=== PATIENT | female | born 1970 | race Caucasian/White ===

== ENCOUNTER 2016-03-14 12:10 | Emergency (ER) | payer BC, OTHER ==
[2016-03-14 12:25] VITALS: BMI 23.8
--- NOTE | 2016-03-14 13:24 | PDOC ---
History of Present Illness - General Chief Complaint: Pain, Acute Stated Complaint: LOWER SIDE/BACK PAIN Time Seen by Provider: 03/14/16 12:59 History Source: Patient Exam Limitations: No Limitations - History of Present Illness Initial Comments: 45 yo F history of kidney stones presents with L flank pain. Pain was abrupt onset, intermittent, colicky, sharp, L flank and L low back. Associated with urinary burning and urgency. +Nausea. No vomiting, no fever, no diarrhea. + Prior similar symptoms. Past History - Past Medical History Allergies/Adverse Reactions: Allergies Allergy/AdvReac Type Severity Reaction Status Date / Time shellfish derived Allergy Verified 03/14/16 12:25 Home Medications: Ambulatory Orders Ibuprofen [Motrin -] 600 mg PO TID PRN #21 tablet 03/14/16 Ondansetron [Zofran -] 4 mg PO TID PRN #21 tablet 03/14/16 Oxycodone HCl/Acetaminophen [Percocet 5-325 mg Tablet] 1 tab PO Q6H PRN #12 tablet MDD 4 tabs 03/14/16 Tamsulosin HCl [Flomax] 0.4 mg PO HS #14 capsule 03/14/16 Asthma: Yes Kidney Stones: Yes - Psycho/Social/Smoking Cessation Hx Suicidal Ideation: No Smoking History: Never smoked Information on smoking cessation initiated: No Review of Systems - Review of Systems Able to Perform ROS?: Yes Comments:: GENERAL/CONSTITUTIONAL: No fever or chills. No weakness. HEAD, EYES, EARS, NOSE AND THROAT: No change in vision. No ear pain or discharge. No sore throat. CARDIOVASCULAR: No chest pain or shortness of breath. RESPIRATORY: No cough, wheezing, or hemoptysis. GASTROINTESTINAL: No nausea, vomiting, diarrhea or constipation. GENITOURINARY: +Dysuria, +urgency. No frequency, no hematuria. MUSCULOSKELETAL: No joint or muscle swelling or pain. No neck or back pain. SKIN: No rash NEUROLOGIC: No headache, vertigo, loss of consciousness, or change in strength/ sensation. ENDOCRINE: No increased thirst. No abnormal weight change. HEMATOLOGIC/LYMPHATIC: No anemia, easy bleeding, or history of blood clots. ALLERGIC/IMMUNOLOGIC: No hives or skin allergy. *Physical Exam - Vital Signs Last Vital Signs Temp Pulse Resp BP Pulse Ox 97.9 F 97 H 18 133/90 100 03/14/16 12:21 03/14/16 12:21 03/14/16 12:21 03/14/16 12:21 03/14/16 12:21 - Physical Exam Comments: GENERAL: Awake, alert, and fully oriented. Appears uncomfortable. HEAD: No signs of trauma EYES: PERRLA, EOMI, sclera anicteric, conjunctiva clear ENT: Auricles normal inspection, hearing grossly normal, nares patent, oropharynx clear without exudates. Moist mucosa NECK: Normal ROM, supple, no lymphadenopathy, JVD, or masses LUNGS: Breath sounds equal, clear to auscultation bilaterally. No wheezes, and no crackles HEART: Regular rate and rhythm, normal S1 and S2, no murmurs, rubs or gallops ABDOMEN: Soft, nontender, normoactive bowel sounds. No guarding, no rebound. No masses. +L CVAT. +Tenderness to L lower back, soft tissue. EXTREMITIES: Normal range of motion, no edema. No clubbing or cyanosis. No cords , erythema, or tenderness NEUROLOGICAL: Cranial nerves II through XII grossly intact. Normal speech, normal gait SKIN: Warm, Dry, normal turgor, no rashes or lesions noted. ED Treatment Course - LABORATORY CBC & Chemistry Diagram: 03/14/16 14:40 03/14/16 14:40 Medical Decision Making - Medical Decision Making Patient's symptoms improved. CT results d/w her. She does not have a local PMD and urologist (moved here recently). I will give a list of PMDs and urologists in the system so that she may set up f/u. Stable for DC. *DC/Admit/Observation/Transfer Diagnosis at time of Disposition: Kidney stone on left side - Discharge Dispostion Disposition: HOME Condition at time of disposition: Stable Admit: No - Prescriptions Prescriptions: Tamsulosin HCl [Flomax] 0.4 mg PO HS #14 capsule Ibuprofen [Motrin -] 600 mg PO TID PRN #21 tablet PRN Reason: Pain Oxycodone HCl/Acetaminophen [Percocet 5-325 mg Tablet] 1 tab PO Q6H PRN #12 tablet MDD 4 tabs PRN Reason: Severe Pain Ondansetron [Zofran -] 4 mg PO TID PRN #21 tablet PRN Reason: Nausea And/Or Vomiting - Patient Instructions Printed Discharge Instructions: DI for Kidney Stones
[2016-03-14] MEDS ORDERED: ONDANSETRON 4 MG/2 ML VIAL IVPUSH ONE (14:02)
[2016-03-14] MEDS ORDERED: SODIUM CHLORIDE 1,000 ML IV STA (14:02)
[2016-03-14] MEDS ORDERED: ONDANSETRON 4 MG/2 ML VIAL ONE (14:51)
[2016-03-14 14:56] LABS: BASOPHIL 0.4 % (0-2.0); EOSINOPHIL 1.4 % (0-4.5); MCH 27.6 pg (25.7-33.7); MCHC 31.9 g/dl (32.0-36.0); MEAN CELL VOLUME 86.6 fl (80-96); MEAN PLT VOLUME 7.7 fl (7.5-11.1); NEUTROPHILS 54.1 % (42.8-82.8); PLATELET COUNT 270 K/MM3 (134-434); RDW 14.8 % (11.6-15.6)
[2016-03-14 15:04] LABS: URINE APPEARANCE CLEAR; URINE BILIRUBIN NEGATIVE (NEGATIVE); URINE BLOOD NEGATIVE (NEGATIVE); URINE COLOR YELLOW; URINE GLUCOSE (UA) NEGATIVE (NEGATIVE); URINE KETONE TRACE (NEGATIVE); URINE LEUK ESTERASE NEGATIVE (NEGATIVE); URINE NITRITE NEGATIVE (NEGATIVE); URINE PROTEIN NEGATIVE (NEGATIVE); URINE UROBILINOGEN NEGATIVE E.U./dl (0.2-1.0)
[2016-03-14] MEDS ORDERED: KETOROLAC TROMETHAMINE 30 MG/1 ML VIAL IVPUSH ONE (15:10)
[2016-03-14 15:18] LABS: ALBUMIN 3.7 g/dl (3.4-5.0); ANION GAP 9 (8-16); CO2 23 mmol/L (21-32); CREATININE 0.5 mg/dL (0.55-1.02); GLUCOSE,RANDOM 79 mg/dL (74-106); SGOT/AST 13 U/L (15-37); SGPT/ALT 16 U/L (12-78)
[2016-03-14 15:19] LABS: ALK PHOS 60 U/L (45-117); BILIRUBIN,TOTAL 0.4 mg/dL (0.2-1.0); TOT PROT 6.4 g/dl (6.4-8.2)
[2016-03-14] MEDS ORDERED: KETOROLAC TROMETHAMINE 30 MG/1 ML VIAL ONE (15:40)
[2016-03-14 18:12] VITALS: BP 122/74; PULSE 80; TEMP 98.6
== END 2016-03-14 18:13 | disposition home or self-care (01) ==
LOC: JER 12:10
PROC: 3E0333Z Introduction of Anti-inflammatory into Peripheral Vein, Percutaneous Approach (ICD-10-PCS; principal; 2016-03-14)
PROC: 3E033GC Introduction of Other Therapeutic Substance into Peripheral Vein, Percutaneous Approach (ICD-10-PCS; 2016-03-14)
DX: N20.0 Calculus of kidney (principal)
CPT/HCPCS: 36415; 74176; 80053; 81003; 84703; 85025; 99284-25

== ENCOUNTER 2017-04-21 00:38 | Emergency (ER) | payer BC ==
[2017-04-21 01:12] VITALS: BP 124/81; BMI 26.5
--- NOTE | 2017-04-21 01:23 | PDOC ---
History of Present Illness - General History Source: Patient, Family Exam Limitations: No Limitations - History of Present Illness Initial Comments: 04/21/17 01:28 The patient is a 46 year old female, with a significant past medical history of asthma, who presents to the emergency department with, right sided chest pain and diffuse upper back pain for approx. 4 hours. The patient reports that around 9pm tonight while lying in bed she experienced the right sided chest pain and diffuse upper back pain. The patient reports the right sided chest pain and upper back pain is made worse with movement. The patient reports using her albuterol inhaler for the right sided chest pain with minimal relief. She denies recent surgery or recent travel. She denies recent swelling or calf tenderness. She denies recent fevers, chills, headache or dizziness. She denies recent nausea, vomit, diarrhea or constipation. She denies recent dysuria, frequency, urgency or hematuria. She denies recent shortness of breath. Allergies: shellfish derived Past surgical history: None reported. Social history: Nonsmoker. Denies EtOH use and recreational drug use. <Ry Early - Last Filed: 04/21/17 01:33> <Rose Chavez - Last Filed: 04/21/17 02:09> - General Chief Complaint: Chest Pain Stated Complaint: DIFFICULTY BREATHING/PAIN Time Seen by Provider: 04/21/17 01:13 Past History <Ry Early - Last Filed: 04/21/17 01:33> - Past Medical History Asthma: Yes Kidney Stones: Yes - Suicide/Smoking/Psychosocial Hx Smoking History: Never smoked Have you smoked in the past 12 months: No Information on smoking cessation initiated: No Hx Alcohol Use: No Drug/Substance Use Hx: No <Rose Chavez - Last Filed: 04/21/17 02:09> - Past Medical History Allergies/Adverse Reactions: Allergies Allergy/AdvReac Type Severity Reaction Status Date / Time shellfish derived Allergy Verified 04/21/17 01:10 Home Medications: Ambulatory Orders Ibuprofen [Motrin -] 600 mg PO TID PRN #21 tablet 03/14/16 Ondansetron [Zofran -] 4 mg PO TID PRN #21 tablet 03/14/16 Oxycodone HCl/Acetaminophen [Percocet 5-325 mg Tablet] 1 tab PO Q6H PRN #12 tablet MDD 4 tabs 03/14/16 Tamsulosin HCl [Flomax] 0.4 mg PO HS #14 capsule 03/14/16 Review of Systems - Review of Systems Comments:: 04/21/17 01:29 GENERAL/CONSTITUTIONAL: No fever or chills. No weakness. HEAD, EYES, EARS, NOSE AND THROAT: No change in vision. No ear pain or discharge. No sore throat. GASTROINTESTINAL: No nausea, vomiting, diarrhea or constipation. GENITOURINARY: No dysuria, frequency, or change in urination. CARDIOVASCULAR: +Right sided chest pain. No shortness of breath. RESPIRATORY: No cough, wheezing, or hemoptysis. MUSCULOSKELETAL: +Diffuse upper back pain. No neck pain. SKIN: No rash NEUROLOGIC: No headache, vertigo, loss of consciousness, or change in strength/ sensation. ENDOCRINE: No increased thirst. No abnormal weight change. HEMATOLOGIC/LYMPHATIC: No anemia, easy bleeding, or history of blood clots. ALLERGIC/IMMUNOLOGIC: No hives or skin allergy. <Ry Early - Last Filed: 04/21/17 01:33> *Physical Exam - Vital Signs Last Vital Signs Temp Pulse Resp BP Pulse Ox 98.5 F 100 H 20 124/81 100 04/21/17 00:42 04/21/17 00:42 04/21/17 00:42 04/21/17 00:42 04/21/17 00:42 - Physical Exam Comments: 04/21/17 01:30 Constitutional: Awake, alert, oriented. No acute distress. Head: Normocephalic. Atraumatic Eyes: PERRL. EOMI. Conjunctivae are not pale. ENT: Mucous membranes are moist and intact. Posterior pharynx without exudates or erythema. Uvula midline. Neck: Supple. Full ROM. No lymphadenopathy. Cardiovascular: Regular rate. Regular rhythm. S1, S2 regular. Distal pulses are 2+ and symmetric. Pulmonary/Chest: +Right peritsternal reproducible chest tenderness. No evidence of respiratory distress. Clear to auscultation bilaterally No wheezing, rales or rhonchi. Abdominal: Soft and non-distended. There is no tenderness. No rebound, guarding or rigidity. No organomegaly. No palpable masses. Good bowel sounds. Back: No CVA tenderness. Musculoskeletal: No edema. No cyanosis. No clubbing. Full range of motion in all extremities. No calf tenderness. Radial/pedal pulses are intact and 2+ bilaterally Skin: Skin is warm and dry. No petechiae. No purpura. Neurological: Alert and oriented to person, place, and time. Cranial nerves II -XII are grossly intact. Normal speech. Strength is grossly symmetric. No sensory deficits. Psychiatric: Good eye contact. Normal interaction, affect and behavior. 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 <Ry Early - Last Filed: 04/21/17 01:33> - Discharge Dispostion Admit: No - Attestations Physician Attestion: 04/21/17 02:09 IDr. Rose DO, attest that this document has been prepared under my direction and personally reviewed by me in its entirety. I further attest, that it accurately reflects all work, treatment, procedures and medical decision -making performed by me. <Rose Chavez - Last Filed: 04/21/17 02:09> Diagnosis at time of Disposition: Right-sided chest wall pain - Discharge Dispostion Condition at time of disposition: Stable - Referrals Referrals: Rehan Mcgowan MD [Staff Physician] - Prashant Henry MD [Staff Physician] - - Patient Instructions Printed Discharge Instructions: DI for Atypical Chest Pain Additional Instructions: Please take motrin for pain. 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 Please make an appointment to see your PMD in 2 days. Please return to the ED with any further complaints.
[2017-04-21] MEDS ORDERED: SODIUM CHLORIDE 0.9% 1000 ML INFUS.BAG IV ONE (01:25)
[2017-04-21] MEDS ORDERED: KETOROLAC TROMETHAMINE 30 MG/1 ML VIAL IVPUSH ONE (01:25)
[2017-04-21] MEDS ORDERED: IBUPROFEN 600 MG TABLET (FP) PO ONE ×2 (01:26→01:42)
[2017-04-21 01:46] LABS: BASO % 0.2 % (0-2.0); EOS % 2.7 % (0-4.5); HEMATOCRIT 38.3 % (32.4-45.2); HEMOGLOBIN 12.3 GM/dL (10.7-15.3); LYMPH % 31.6 % (8-40); MEAN CELL VOLUME 84.3 fl (80-96); MEAN PLT VOLUME 7.5 fl (7.5-11.1); MONO % 10.4 % (3.8-10.2); NEUT % 55.1 % (42.8-82.8); PLATELET COUNT 255 K/MM3 (134-434); RBC 4.55 M/mm3 (3.60-5.2); RDW 14.6 % (11.6-15.6); WHITE BLOOD COUNT 6.7 K/mm3 (4.0-10.0)
[2017-04-21 02:17] LABS: ALBUMIN 3.3 g/dl (3.4-5.0); ANION GAP 8 (8-16); BILIRUBIN,TOTAL 0.2 mg/dL (0.2-1.0); BLOOD UREA NITROGEN 22 mg/dL (7-18); CALCIUM 7.8 mg/dL (8.5-10.1); CHLORIDE 105 mmol/L (98-107); CO2 27 mmol/L (21-32); GLUCOSE,RANDOM 98 mg/dL (74-106); MAGNESIUM 2.5 mg/dL (1.8-2.4); SGOT/AST 14 U/L (15-37); SGPT/ALT 23 U/L (12-78); SODIUM 140 mmol/L (136-145); TOT PROT 6.3 g/dl (6.4-8.2)
[2017-04-21 02:21] LABS: ALK PHOS 61 U/L (45-117)
--- NOTE | 2017-04-21 03:27 | PDOC ---
*Physical Exam - Vital Signs Last Vital Signs Temp Pulse Resp BP Pulse Ox 98.5 F 100 H 20 124/81 100 04/21/17 00:42 04/21/17 00:42 04/21/17 00:42 04/21/17 00:42 04/21/17 00:42 ED Treatment Course - LABORATORY CBC & Chemistry Diagram: 04/21/17 01:36 04/21/17 01:36 - ADDITIONAL ORDERS Additional order review: Laboratory Results 04/21/17 04/21/17 04/21/17 01:51 01:36 01:36 Sodium 140 Potassium 4.0 Chloride 105 Carbon Dioxide 27 Anion Gap 8 BUN 22 H Creatinine 1.0 Creat Clearance w eGFR 59.69 Random Glucose 98 Calcium 7.8 L Magnesium 2.5 H Total Bilirubin 0.2 D AST 14 L ALT 23 Alkaline Phosphatase 61 Creatine Kinase 81 Troponin I < 0.02 Total Protein 6.3 L Albumin 3.3 L Lipase 148 TSH 3.87 H Urine HCG, Qual Negative 04/21/17 01:36 RBC 4.55 MCV 84.3 MCHC 32.0 RDW 14.6 MPV 7.5 Neutrophils % 55.1 Lymphocytes % 31.6 Monocytes % 10.4 H Eosinophils % 2.7 D Basophils % 0.2 - Medications Given in the ED: ED Medications Discontinued Medications Generic Name Dose Route Start Last Admin Trade Name Jose PRN Reason Stop Dose Admin Ibuprofen 600 mg 04/21/17 01:26 04/21/17 01:44 Motrin - PO 04/21/17 01:27 600 mg ONCE ONE Administration *DC/Admit/Observation/Transfer Diagnosis at time of Disposition: Right-sided chest wall pain - Discharge Dispostion Disposition: HOME Condition at time of disposition: Stable Admit: No - Referrals Referrals: Prashant Henry MD [Staff Physician] - Rehan Mcgowan MD [Staff Physician] - - Patient Instructions Printed Discharge Instructions: DI for Atypical Chest Pain Additional Instructions: Please take motrin for pain. Please follow up with the manager meat if the pain continues. Please make an appointment to see your PMD in 2 days. Please return to the ED with any further complaints. - Post Discharge Activity
[2017-04-21 03:51] VITALS: PULSE 82; TEMP 98.3
--- NOTE | 2017-04-21 09:08 | EKG ---
Test Reason : Blood Pressure : / mmHG Vent. Rate : 089 BPM Atrial Rate : 089 BPM P-R Int : 138 ms QRS Dur : 076 ms QT Int : 360 ms P-R-T Axes : 065 060 041 degrees QTc Int : 438 ms NORMAL SINUS RHYTHM NORMAL ECG NO PREVIOUS ECGS AVAILABLE Confirmed by REINALDO PORTER MD ([id number]) on 04/21/2017 9:08:14 AM Referred By: Confirmed By:REINALDO PORTER MD
== END 2017-04-21 03:52 | disposition home or self-care (01) ==
LOC: JER 00:38
DX: R07.89 Other chest pain (principal); Z86.69 Personal history of other diseases of the nervous system and sense organs
CPT/HCPCS: 36415; 71046-TC-FY; 80053; 82550; 83690; 83735; 84443; 84484; 84703; 85025; 93005; 93010; 99282-25

== ENCOUNTER 2019-03-29 12:55 | Emergency (ER) | payer OTHER ==
[2019-03-29 13:02] VITALS: BP 129/79; PULSE 83; TEMP 97.9; BMI 26.6
[2019-03-29] MEDS ORDERED: guaiFENesin/CODEINE 10 ML UNIT-DOSE CUPS PO ONE (14:04)
[2019-03-29] MEDS ORDERED: ALBUTEROL SO4 2.5/IPRATROPIUM 0.5 INH SOL 3 ML VIAL.NEB. NEB ONE ×2 (14:04→14:07)
[2019-03-29] MEDS ORDERED: guaiFENesin/CODEINE 5 ML UNIT-DOSE CUPS PO ONE (14:07)
--- NOTE | 2019-03-29 14:19 | PDOC ---
History of Present Illness - General Chief Complaint: Shortness of Breath Stated Complaint: SHORTNESS OF BREATH Time Seen by Provider: 03/29/19 13:17 History Source: Patient Exam Limitations: No Limitations Past History - Travel Traveled outside of the country in the last 30 days: No Close contact w/someone who was outside of country & ill: No - Past Medical History Allergies/Adverse Reactions: Allergies Allergy/AdvReac Type Severity Reaction Status Date / Time shellfish derived Allergy Verified 04/21/17 01:10 Home Medications: Ambulatory Orders Ibuprofen [Motrin -] 600 mg PO TID PRN #21 tablet 03/14/16 Ondansetron [Zofran -] 4 mg PO TID PRN #21 tablet 03/14/16 Oxycodone HCl/Acetaminophen [Percocet 5-325 mg Tablet] 1 tab PO Q6H PRN #12 tablet MDD 4 tabs 03/14/16 Tamsulosin HCl [Flomax] 0.4 mg PO HS #14 capsule 03/14/16 Albuterol 2.5/Ipratropium 0.5 [Duoneb -] 1 neb NEB Q4H #20 vial 03/29/19 Fluticasone/Salmeterol [Advair Hfa 45-21 Mcg Inhaler] 1 inh PO BID #1 inhaler Guaifenesin AC [Robitussin AC] 10 ml PO HS #100 ml MDD 1 03/29/19 Nebulizer [Compact Compressor Nebulizer] 1 each MC Q4H #1 each 03/29/19 Asthma: Yes COPD: No Kidney Stones: Yes - Psycho Social/Smoking Cessation Hx Smoking History: Never smoked Have you smoked in the past 12 months: No Hx Alcohol Use: No Drug/Substance Use Hx: No Review of Systems - Review of Systems Able to Perform ROS?: Yes Comments:: 03/29/19 14:10 CONSTITUTIONAL: Absent: fever, chills, diaphoresis, generalized weakness, malaise, loss of appetite HEENT: Absent: rhinorrhea, nasal congestion, throat pain, throat swelling, difficulty swallowing, mouth swelling, ear pain, eye pain, visual Changes CARDIOVASCULAR: Absent: chest pain, loss of consciousness, palpitations, irregular heart rate, peripheral edema RESPIRATORY: Present: cough, shortness of breath. Absent: dyspnea with exertion, orthopnea, wheezing, stridor, hemoptysis GASTROINTESTINAL: Absent: abdominal pain, abdominal distension, nausea, vomiting, diarrhea, constipation, melena, hematochezia GENITOURINARY: Absent: dysuria, frequency, urgency, hesitancy, hematuria, flank pain, genital pain MUSCULOSKELETAL: Absent: myalgia, arthralgia, joint swelling SKIN: Absent: rash, itching, pallor NEUROLOGIC: Absent: headache, focal weakness or paresthesias, dizziness, unsteady gait, seizure, mental status changes, bladder or bowel incontinence PSYCHIATRIC: Absent: anxiety, depression, suicidal or homicidal ideation, hallucinations. Is the patient limited Italian proficient: No *Physical Exam - Vital Signs Last Vital Signs Temp Pulse Resp BP Pulse Ox 97.9 F 83 19 129/79 97 03/29/19 12:59 03/29/19 12:59 03/29/19 12:59 03/29/19 12:59 03/29/19 12:59 - Physical Exam 03/29/19 14:19 GENERAL: Well developed, well nourished. Awake and alert. No acute distress. HEENT: Normocephalic, atraumatic. PERRLA, EOMI. No conjunctival pallor. Sclera are non- icteric. Moist mucous membranes. Oropharynx is clear. NECK: Supple. Full ROM. No lymphadenopathy. CARDIOVASCULAR: Regular rate and rhythm. No murmurs, rubs, or gallops. Distal pulses are 2+ and symmetric. PULMONARY: No evidence of respiratory distress. Lungs clear to auscultation bilaterally. No wheezing, rales or rhonchi. EXTREMITIES: No cyanosis. No clubbing. No edema. No calf tenderness. SKIN: Warm and dry. Normal capillary refill. No rashes. No jaundice. NEUROLOGICAL: Alert, awake, appropriate. Cranial nerves 2-12 intact. No deficits to light touch and temperature in face, upper extremities and lower extremities. No motor deficits in the in face, upper extremities and lower extremities. Normoreflexic in the upper and lower extremities. Normal speech. Toes are down- going bilaterally. Gait is normal without ataxia. PSYCHIATRIC: Cooperative. Good eye contact. Appropriate mood and affect. ED Treatment Course - RADIOLOGY Radiology Studies Ordered: Category Date Time Status CHEST PA & LAT [RAD] Stat Radiology 03/29/19 14:04 Ordered Medical Decision Making - Medical Decision Making 03/29/19 14:38 The patient is a 48-year-old female with past medical history of asthma, presents to the ER for a cough for 3 weeks. She states she has been to 3 separate urgent cares for the same cough. She states she has been on prednisone , amoxicillin, multiple cough medicines with little relief of her symptoms. She states that her chest feels tight and that she has trouble taking a deep breath. She notes that when she uses her albuterol nebulizer she feels better however when the medication wears off she feels tight again. Denies fevers, chills, chest pain, recent travel, control use, calf pain. The cough is nonproductive. A/P: Cough On exam lungs are clear to auscultation bilaterally with no wheezes rales or rhonchi. Patient does not appear in distress. Given 3 weeks of cough and multiple urgent care visits, will obtain chest x-ray , give DuoNeb treatment Patient does need a primary care provider, will refer her to the [facility]. We will also obtain EKG Reevaluate 03/29/19 16:13 EKG: Rate 78 bpm, normal sinus rhythm. Normal intervals and axis. Mild flattening of T wave in lead III otherwise unremarkable EKG. CXR is negative for X-ray Likely bronchitis. Worse in the setting of asthma. We will discharge home with nebulizer, DuoNeb, inhaled steroids as patient has been using her albuterol inhaler very frequently. Robitussin with codeine sent Pt to continue her abx and prednisone that was previously prescribed. Primary care follow-up given Discharge home I discussed the physical exam findings, ancillary test results and final diagnoses with the patient. I answered all of the patient's questions. The patient was satisfied with the care received and felt comfortable with the discharge plan and treatment plan. The Patient agrees to follow up with the primary care physician/specialist within 24-72 hours. Return precautions were given. Discharge - Discharge Information Problems reviewed: Yes Clinical Impression/Diagnosis: Bronchitis Asthma Qualifiers: Asthma severity: mild Asthma persistence: intermittent Asthma complication type : with acute exacerbation Qualified Code(s): J45.21 - Mild intermittent asthma with (acute) exacerbation Condition: Stable Disposition: HOME - Admission No - Additional Discharge Information Prescriptions: Albuterol 2.5/Ipratropium 0.5 [Duoneb -] 1 neb NEB Q4H #20 vial Fluticasone/Salmeterol [Advair Hfa 45-21 Mcg Inhaler] 1 inh PO BID #1 inhaler Guaifenesin AC [Robitussin AC] 10 ml PO HS #100 ml MDD 1 Nebulizer [Compact Compressor Nebulizer] 1 each Q4H #1 each - Follow up/Referral Referrals: Prashant Henry MD [Staff Physician] - - Patient Discharge Instructions Patient Printed Discharge Instructions: DI for Acute Bronchitis Additional Instructions: You have bronchitis Please use the nebulizer every 4 hours for the next week to help with your cough. Use the Advair inhaler twice a day. This is an inhaled steroid. Continue taking the prednisone. Take the 4 pills daily for 3 days. You may take the Robitussin with codeine at night before bed to help with your cough. Do not drive or drink alcohol after taking this medication as it may make you sleepy. Please follow up with your primary care doctor in 1 week if your symptoms are not improving. You are given a referral for primary care. Please call them tomorrow. Return to the emergency department if you have fevers, chills, worsening cough, chest pain, worsening shortness of breath or if you have any changes in your symptoms. - Post Discharge Activity Work/Back to School Note: Back to Work
--- NOTE | 2019-03-30 10:53 | EKG ---
Test Reason : Blood Pressure : / mmHG Vent. Rate : 078 BPM Atrial Rate : 078 BPM P-R Int : 152 ms QRS Dur : 078 ms QT Int : 372 ms P-R-T Axes : 038 047 028 degrees QTc Int : 424 ms NORMAL SINUS RHYTHM POSSIBLE LEFT ATRIAL ENLARGEMENT NONSPECIFIC T WAVE ABNORMALITY ABNORMAL ECG WHEN COMPARED WITH ECG OF 21-APR-2017 00:57, NONSPECIFIC T WAVE ABNORMALITY NOW EVIDENT IN ANTEROLATERAL LEADS Confirmed by REINALDO PORTER MD ([id number]) on 03/30/2019 10:52:37 AM Referred By: Confirmed By:REINALDO PORTER MD
== END 2019-03-29 16:19 | disposition home or self-care (01) ==
LOC: JERFT 12:55
PROC: 3E0F7GC Introduction of Other Therapeutic Substance into Respiratory Tract, Via Natural or Artificial Opening (ICD-10-PCS; principal; 2019-03-29)
DX: J40 Bronchitis, not specified as acute or chronic (principal); J45.20 Mild intermittent asthma, uncomplicated
CPT/HCPCS: 71046-TC-FY; 93005; 93010; 99281-25

== ENCOUNTER 2019-09-23 11:41 | Emergency (ER) | payer OTHER ==
[2019-09-23 11:52] VITALS: TEMP 98.6; BMI 27.4
[2019-09-23] MEDS ORDERED: SODIUM CHLORIDE 0.9% 500 ML INFUS.BAG IV ONE (11:52)
--- NOTE | 2019-09-23 11:52 | PDOC ---
Rapid Medical Evaluation Medical Evaluation: Allergies Allergy/AdvReac Type Severity Reaction Status Date / Time shellfish derived Allergy Verified 04/21/17 01:10 09/23/19 11:49 48 yo h/o asthma, renal stones s/p lithotripsy approximately 1.5 years ago c/o L flank pain since yesterday with nausea and urinary urgency. denies f/c/v, cp. denies taking pain meds today. VSS appear uncomfortable A/P: L flank pain labs, UA, IVF
[2019-09-23] MEDS ORDERED: ACETAMINOPHEN 1000 MG/100 ML VIAL (NON FORMULARY) IVPB ONE (12:15)
--- NOTE | 2019-09-23 12:21 | PDOC ---
History of Present Illness - General Chief Complaint: Pain Stated Complaint: BACK PAIN Time Seen by Provider: 09/23/19 12:06 History Source: Patient Exam Limitations: Clinical Condition - History of Present Illness Travel History: No Initial Comments: 09/23/19 12:16 Patient with past medical history of asthma and left kidney stone over a year and half ago presented with complaint of left flank pain radiating to left groin area for 2 days with urinary urgency. Patient also reported urinary frequency. Denies nausea, vomiting, fever, chills, vaginal discharge, diarrhea or constipation. LMP yesterday. Denies any other symptoms. Patient reports sy mptoms feel similar to her kidney stones Timing/Duration: reports: constant, other (2 days) Past History - Medical History Allergies/Adverse Reactions: Allergies Allergy/AdvReac Type Severity Reaction Status Date / Time bacitracin Allergy Verified 09/23/19 11:52 [From Neosporin ([id number])] neomycin Allergy Verified 09/23/19 11:52 [From Neosporin ([id number])] polymyxin B Allergy Verified 09/23/19 11:52 [From Neosporin ([id number])] shellfish derived Allergy Verified 09/23/19 11:52 Home Medications: Ambulatory Orders Ibuprofen [Motrin -] 600 mg PO TID PRN #21 tablet 03/14/16 Ondansetron [Zofran -] 4 mg PO TID PRN #21 tablet 03/14/16 Oxycodone HCl/Acetaminophen [Percocet 5-325 mg Tablet] 1 tab PO Q6H PRN #12 tablet MDD 4 tabs 03/14/16 Tamsulosin HCl [Flomax] 0.4 mg PO HS #14 capsule 03/14/16 Albuterol 2.5/Ipratropium 0.5 [Duoneb -] 1 neb NEB Q4H #20 vial 03/29/19 Fluticasone/Salmeterol [Advair Hfa 45-21 Mcg Inhaler] 1 inh PO BID #1 inhaler 03/29/19 Guaifenesin AC [Robitussin AC] 10 ml PO HS #100 ml MDD 1 03/29/19 Nebulizer [Compact Compressor Nebulizer] 1 each MC Q4H #1 each 03/29/19 Ciprofloxacin [Cipro (Restricted To Id)] 500 mg PO Q12H 5 Days #10 tablet 09/23/19 Phenazopyridine HCl [Pyridium -] 100 mg PO PC #6 tablet 09/23/19 Asthma: Yes COPD: No Kidney Stones: Yes - Psycho-Social/Smoking History Smoking History: Never smoked Have you smoked in the past 12 months: No Information on smoking cessation initiated: No - Substance Abuse Hx (Audit-C & DAST Scrn) How often the patient has a drink containing alcohol: Never Score: In Men: 4 or > Positive; In Women: 3 or > Positive: 0 Screen Result (Pos requires Nsg. Audit-10AR): Negative In the last yr the pt used illegal drug/Rx for NonMed reason: No Score: Yes response is considered Positive: 0 Screen Result (Positive result requires Nsg. DAST-10): Negative Review of Systems - Review of Systems Able to Perform ROS?: Yes Is the patient limited Malagasy proficient: No Constitutional: No: Chills, Fever, Malaise HEENTM: No: Symptoms Reported, See HPI, Eye Pain, Blurred Vision, Tearing, Recent change in vision, Double Vision, Cataracts, Ear Pain, Ocular Prothesis, Ear Discharge, Nose Pain, Nose Congestion, Tinnitus, Nose Bleeding, Hearing Loss, Throat Pain, Throat Swelling, Mouth Pain, Dental Problems, Difficulty Swallowing, Mouth Swelling, Other Respiratory: No: Symptoms reported, See HPI, Cough, Orthopnea, Shortness of B reath, SOB with Exertion, SOB at Rest, Stridor, Wheezing, Productive cough, Hemoptysis, Other Cardiac (ROS): No: Symptoms Reported, See HPI, Chest Pain, Edema, Irregular Heart Rate, Lightheadedness, Palpitations, Syncope, Chest Tightness, Other ABD/GI: Yes: Symptoms Reported, See HPI, Abdominal cramping (left flank pain to left groin). No: Nausea, Vomiting : Yes: Symptoms Reported, See HPI, Dysuria, Frequency, Flank Pain (left flank pain), Pain (left flank pain), Urgency. No: Burning, Discharge, Hematuria Musculoskeletal: No: Symptoms Reported, Back Pain All Other Systems: Reviewed and Negative *Physical Exam - Vital Signs Last Vital Signs Temp Pulse Resp BP Pulse Ox 98.6 F 93 H 18 133/87 99 09/23/19 11:49 09/23/19 11:49 09/23/19 11:49 09/23/19 11:49 09/23/19 11:49 - Physical Exam General Appearance: Yes: Nourished, Appropriately Dressed. No: Apparent Distress HEENT: positive: Normal ENT Inspection Neck: positive: Supple Respiratory/Chest: positive: Lungs Clear, Normal Breath Sounds. negative: Chest Tender, Respiratory Distress, Accessory Muscle Use Cardiovascular: positive: Regular Rhythm, Regular Rate Gastrointestinal/Abdominal: positive: Normal Bowel Sounds, Tender (left flank pain), Flat. negative: Guarding, Rebound, Hepatomegaly, Spleenomegaly Musculoskeletal: positive: Normal Inspection. negative: CVA Tenderness Extremity: positive: Normal Capillary Refill, Normal Inspection, Normal Range of Motion Integumentary: positive: Normal Color Neurologic: positive: Fully Oriented, Alert, Normal Mood/Affect, Normal Response, Motor Strength 07/08 ED Treatment Course - LABORATORY CBC & Chemistry Diagram: 09/23/19 12:10 09/23/19 12:10 Medical Decision Making - Medical Decision Making 09/23/19 12:17 Patient with past medical history of asthma and left kidney stone over a year and half ago presented with complaint of left flank pain radiating to left groin area for 2 days with urinary urgency. Patient also reported urinary frequency. Denies nausea, vomiting, fever, chills, vaginal discharge, diarrhea or constipation. LMP yesterday. Denies any other symptoms. Patient reports symptoms feel similar to her kidney stones Exam significant for moderate tenderness left flank area without guarding or rebound. No tenderness to rest of abdomen. No CVA tenderness. Normal cardio and lung exam. Patient afebrile. Symptoms likely kidney stone versus cystitis versus ovarian cyst pain from ovulatory. CBC, CMP, UA, urine hCG urine culture lab ordered. IV Tylenol 1 g ordered for pain and hydration with 1 L normal saline ordered. Will order spiral CT if negative test to rule out kidney stone or acute abnormality 09/23/19 15:35 CBC and chemistry lab unremarkable. UA within normal limits and urine test negative. Spiral CT done shows no kidney stone. Patient report improvement of pain with Tylenol IV fluid. Given patient reports still having dysuria and urgency and no kidney stone found on labs, patient will be treated empirically for cystitis on Cipro antibiotics and Pyridium pending urine culture results with urology follow-up Discharge - Discharge Information Problems reviewed: Yes Clinical Impression/Diagnosis: Flank pain, acute, Dysuria Condition: Stable Disposition: HOME - Admission No - Additional Discharge Information Prescriptions: Ciprofloxacin [Cipro (Restricted To Id)] 500 mg PO Q12H 5 Days #10 tablet Phenazopyridine HCl [Pyridium -] 100 mg PO PC #6 tablet - Follow up/Referral Referrals: Ryan Jordan MD [Staff Physician] - - Patient Discharge Instructions Patient Printed Discharge Instructions: DI for Dysuria -- Adult, DI for Flank Pain Additional Instructions: Your blood work was normal. Your CAT scan shows no kidney stone. Your symptoms could be from passed kidney stone which you probably passed overnight. Given urinary symptoms, you will be treated with antibiotics as discussed pending urine culture results. Make a follow-up appointment with your urologist as soon as possible - Post Discharge Activity
[2019-09-23 12:51] LABS: URINE APPEARANCE CLEAR; URINE BILIRUBIN NEGATIVE (NEGATIVE); URINE COLOR YELLOW; URINE GLUCOSE (UA) NEGATIVE (NEGATIVE); URINE KETONE NEGATIVE (NEGATIVE); URINE LEUK ESTERASE NEGATIVE (NEGATIVE); URINE NITRITE NEGATIVE (NEGATIVE); URINE PROTEIN NEGATIVE (NEGATIVE); URINE UROBILINOGEN 0.2 mg/dL (0.2-1.0)
[2019-09-23 12:55] LABS: BASO % 0.2 % (0-2.0); EOS % 2.2 % (0-4.5); HEMATOCRIT 41.3 % (32.4-45.2); HEMOGLOBIN 13.3 GM/dL (10.7-15.3); LYMPH % 35.3 % (8-40); MCH 27.5 pg (25.7-33.7); MCHC 32.1 g/dl (32.0-36.0); MEAN CELL VOLUME 85.6 fl (80-96); MEAN PLT VOLUME 7.8 fl (7.5-11.1); MONO % 7.5 % (3.8-10.2); NEUT % 54.8 % (42.8-82.8); PLATELET COUNT 307 K/MM3 (134-434); RBC 4.83 M/mm3 (3.60-5.2); RDW 15.1 % (11.6-15.6); WHITE BLOOD COUNT 4.8 K/mm3 (4.0-10.0)
[2019-09-23 13:16] LABS: ALBUMIN 3.5 g/dl (3.4-5.0); BILIRUBIN,TOTAL 0.2 mg/dL (0.2-1); BLOOD UREA NITROGEN 17.5 mg/dL (7-18); CALCIUM 8.3 mg/dL (8.5-10.1); CREATININE 0.7 mg/dL (0.55-1.3); MAGNESIUM 2.2 mg/dL (1.8-2.4); POTASSIUM 4.2 mmol/L (3.5-5.1); TOT PROT 6.7 g/dl (6.4-8.2)
[2019-09-23 15:59] VITALS: BP 126/83; PULSE 86
== END 2019-09-23 15:58 | disposition home or self-care (01) ==
LOC: JER 11:41
PROC: 3E0333Z Introduction of Anti-inflammatory into Peripheral Vein, Percutaneous Approach (ICD-10-PCS; principal; 2019-09-23)
DX: R10.9 Unspecified abdominal pain (principal); R30.0 Dysuria
CPT/HCPCS: 36415; 74176-TC; 80053; 81003; 83735; 84443; 84703; 85025; 87086; 96374; 99284-25; J0131

== ENCOUNTER 2020-01-13 23:36 | Inpatient (IN) | payer OTHER ==
[2020-01-13 23:50] VITALS: BMI 30.2
[2020-01-14] MEDS ORDERED: morphine CARPU-JECT 4 MG/1 ML DISP.SYRIN IVPUSH ONE (02:17)
[2020-01-14] MEDS ORDERED: ONDANSETRON 4 MG/2 ML VIAL IVPUSH ONE (02:17)
[2020-01-14] MEDS ORDERED: SODIUM CHLORIDE 1,000 ML IV STA (02:18)
[2020-01-14] MEDS ORDERED: morphine SULFATE 4 MG/ML VIAL ONE (02:26)
[2020-01-14 02:58] LABS: HEMATOCRIT 39.8 % (32.4-45.2); HEMOGLOBIN 12.7 GM/dL (10.7-15.3); MCH 27.4 pg (25.7-33.7); MEAN CELL VOLUME 85.5 fl (80-96); MEAN PLT VOLUME 7.9 fl (7.5-11.1); PLATELET COUNT 260 K/MM3 (134-434); RBC 4.66 M/mm3 (3.60-5.2); RDW 14.6 % (11.6-15.6); WHITE BLOOD COUNT 9.4 K/mm3 (4.0-10.0)
[2020-01-14 03:01] LABS: PH,URINE 5.5 (5.0-8.0); URINE APPEARANCE CLEAR; URINE BILIRUBIN NEGATIVE (NEGATIVE); URINE COLOR YELLOW; URINE GLUCOSE (UA) NEGATIVE (NEGATIVE); URINE KETONE NEGATIVE (NEGATIVE); URINE LEUK ESTERASE NEGATIVE (NEGATIVE); URINE NITRITE NEGATIVE (NEGATIVE); URINE PROTEIN NEGATIVE (NEGATIVE); URINE UROBILINOGEN 0.2 mg/dL (0.2-1.0)
[2020-01-14 03:14] LABS: POTASSIUM 4.1 mmol/L (3.5-5.1)
[2020-01-14 03:16] LABS: CALCIUM 8.9 mg/dL (8.5-10.1)
[2020-01-14 03:17] LABS: ALBUMIN 3.6 g/dl (3.4-5.0); BLOOD UREA NITROGEN 23.4 mg/dL (7-18)
[2020-01-14 03:21] LABS: BILIRUBIN,TOTAL 0.3 mg/dL (0.2-1)
[2020-01-14 03:22] LABS: TOT PROT 6.6 g/dl (6.4-8.2)
[2020-01-14 04:13] LABS: CREATININE 1.1 mg/dL (0.55-1.3)
[2020-01-14] MEDS ORDERED: MORPHINE SULFATE 2 MG/ML VIAL IVPUSH PRN (06:13)
[2020-01-14] MEDS ORDERED: HEPARIN NA (PORCINE) 5,000 UNITS/ML 1ML VIAL SQ SCH (06:30)
[2020-01-14] MEDS: SODIUM CHLORIDE 1,000 ML IV SCH ×2 (06:33→11:29)
[2020-01-14] MEDS ORDERED: HEPARIN NA (PORCINE) 5,000 UNITS/ML 1ML VIAL ONE (06:42)
[2020-01-14] MEDS ORDERED: MORPHINE SULFATE 2 MG/ML VIAL ONE (06:42)
[2020-01-14] MEDS ORDERED: TAMSULOSIN HCL 0.4 MG CAP PO SCH (08:30)
[2020-01-14] MEDS ORDERED: KETOROLAC TROMETHAMINE 15 MG/ML VIAL IVPUSH PRN (09:10)
[2020-01-14 09:44] LABS: BASO % 0.4 % (0-2.0); EOS % 0.4 % (0-4.5); HEMATOCRIT 38.3 % (32.4-45.2); HEMOGLOBIN 12.5 GM/dL (10.7-15.3); LYMPH % 17.1 % (8-40); MCH 27.6 pg (25.7-33.7); MCHC 32.5 g/dl (32.0-36.0); MEAN CELL VOLUME 84.9 fl (80-96); MEAN PLT VOLUME 7.5 fl (7.5-11.1); MONO % 8.2 % (3.8-10.2); NEUT % 73.9 % (42.8-82.8); PLATELET COUNT 258 K/MM3 (134-434); RBC 4.51 M/mm3 (3.60-5.2); RDW 14.3 % (11.6-15.6); WHITE BLOOD COUNT 7.8 K/mm3 (4.0-10.0)
[2020-01-14 09:55] LABS: INR 0.99 (0.83-1.09)
[2020-01-14 09:58] LABS: ACTIVATED PTT 28.4 SECONDS (25.2-36.5)
[2020-01-14] MEDS ORDERED: POTASSIUM CITRATE/CITRIC ACID 2 MEQ/ML ML PO SCH (10:00)
[2020-01-14] MEDS ORDERED: CEFTRIAXONE 1 GM in DEXTROSE 5%-WATER - 50 ML IVPB SCH (10:00)
[2020-01-14 10:21] LABS: POTASSIUM 4.4 mmol/L (3.5-5.1)
[2020-01-14 10:23] LABS: CALCIUM 7.9 mg/dL (8.5-10.1)
[2020-01-14 10:24] LABS: ALBUMIN 3.3 g/dl (3.4-5.0); BLOOD UREA NITROGEN 17.2 mg/dL (7-18)
[2020-01-14 10:27] LABS: PHOSPHOROUS 3.3 mg/dL (2.5-4.9)
[2020-01-14 10:28] LABS: BILIRUBIN,TOTAL 0.4 mg/dL (0.2-1)
[2020-01-14 10:29] LABS: TOT PROT 5.9 g/dl (6.4-8.2)
[2020-01-14] MEDS ORDERED: PROPOFOL 20 ML ONE (16:27)
[2020-01-14] MEDS ORDERED: MIDAZOLAM HCL 2 MG/2 ML SINGLE DOSE VIAL ONE (16:28)
[2020-01-14] MEDS ORDERED: LIDOCAINE HCL/PF 2% SDV 5ML VIAL ONE (16:29)
[2020-01-14] MEDS ORDERED: SODIUM CHLORIDE 0.9% P/F 10 ML VIAL IJ ONE (16:34)
[2020-01-14] MEDS ORDERED: ceFAZolin SODIUM 1 GM VIAL ONE (16:34)
[2020-01-14] MEDS ORDERED: DEXAMETHASONE SOD PHOSPHATE 4 MG/1 ML VIAL ONE (16:34)
[2020-01-14] MEDS ORDERED: ceFAZolin SODIUM 1 GM VIAL IVPB ONE (16:36)
[2020-01-14] MEDS ORDERED: KETOROLAC TROMETHAMINE 30 MG/1 ML VIAL ONE (16:55)
[2020-01-14] MEDS ORDERED: oxyCODONE HCL 5 MG TABLET PO ONE (17:45)
[2020-01-14] MEDS ORDERED: ACETAMINOPHEN 325 MG TABLET (FP) PO ONE (17:45)
[2020-01-14] MEDS ORDERED: PROMETHAZINE HCL 25 MG/1 ML VIAL IVPUSH PRN (17:47)
[2020-01-14] MEDS ORDERED: ONDANSETRON 4 MG/2 ML VIAL IVPUSH PRN (17:47)
[2020-01-14] MEDS ORDERED: LACTATED RINGERS SOLUTION 1,000 ML IV SCH (18:00)
[2020-01-14] MEDS ORDERED: KETOROLAC TROMETHAMINE 30 MG/1 ML VIAL IVPUSH PRN (18:06)
[2020-01-14] MEDS ORDERED: ALBUTEROL SO4 HFA INHALER IH PRN (18:06)
[2020-01-14] MEDS ORDERED: SODIUM CHLORIDE 1,000 ML IV SCH (18:06)
[2020-01-14] MEDS ORDERED: oxyCODONE HCL 5 MG TABLET PO PRN (19:51)
[2020-01-14] MEDS: DICYCLOMINE HCL 10 MG CAPSULE PO SCH (21:12)
[2020-01-14] MEDS ORDERED: ACETAMINOPHEN 325 MG TABLET (FP) PO PRN ×2 (21:25→21:44)
[2020-01-15] MEDS ORDERED: TAMSULOSIN HCL 0.4 MG CAP PO SCH (08:30)
[2020-01-15 08:36] LABS: HEMATOCRIT 37.8 % (32.4-45.2); MCH 26.9 pg (25.7-33.7); MCHC 31.9 g/dl (32.0-36.0); MEAN CELL VOLUME 84.2 fl (80-96); MEAN PLT VOLUME 7.6 fl (7.5-11.1); PLATELET COUNT 261 K/MM3 (134-434); RBC 4.48 M/mm3 (3.60-5.2); RDW 14.5 % (11.6-15.6); WHITE BLOOD COUNT 7.7 K/mm3 (4.0-10.0)
[2020-01-15] MEDS: TAMSULOSIN HCL 0.4 MG CAP PO SCH (08:55)
[2020-01-15 08:59] LABS: POTASSIUM 3.9 mmol/L (3.5-5.1)
[2020-01-15 09:01] LABS: ALBUMIN 2.9 g/dl (3.4-5.0)
[2020-01-15 09:02] LABS: MAGNESIUM 2.2 mg/dL (1.8-2.4)
[2020-01-15 09:05] LABS: CREATININE 0.6 mg/dL (0.55-1.3); PHOSPHOROUS 3.3 mg/dL (2.5-4.9)
[2020-01-15 09:06] LABS: BILIRUBIN,TOTAL 0.4 mg/dL (0.2-1); TOT PROT 5.7 g/dl (6.4-8.2)
[2020-01-15] MEDS: CEFTRIAXONE 1 GM in DEXTROSE 5%-WATER - 50 ML IVPB SCH (09:31)
[2020-01-15] MEDS: DICYCLOMINE HCL 10 MG CAPSULE PO SCH ×2 (09:31→21:11)
[2020-01-15] MEDS: SODIUM CHLORIDE 1,000 ML IV SCH (11:46)
[2020-01-15] MEDS ORDERED: PT OWN MED DRAWER 7, Y5N ONE (20:50)
[2020-01-15] MEDS: PATIENT'S OWN MEDICATION (NON-FORMULARY) (Linaclotide [Linzess] 145 MCG) PO SCH (21:12)
[2020-01-16] MEDS: SODIUM CHLORIDE 1,000 ML IV SCH ×2 (00:32→14:28)
[2020-01-16 08:28] LABS: HEMATOCRIT 34.1 % (32.4-45.2); MCH 27.5 pg (25.7-33.7); MCHC 32.2 g/dl (32.0-36.0); MEAN CELL VOLUME 85.5 fl (80-96); PLATELET COUNT 252 K/MM3 (134-434); RBC 3.99 M/mm3 (3.60-5.2); RDW 14.7 % (11.6-15.6)
[2020-01-16 08:51] LABS: POTASSIUM 3.9 mmol/L (3.5-5.1)
[2020-01-16] MEDS ORDERED: cefTRIAXone SODIUM 1 GM VIAL ONE (08:55)
[2020-01-16] MEDS ORDERED: DEXTROSE 5%-WATER - 50 ML IVPB ONE (08:55)
[2020-01-16] MEDS ORDERED: PT OWN MED DRAWER 7, Y5N ONE ×2 (08:55→15:31)
[2020-01-16 08:56] LABS: CALCIUM 7.4 mg/dL (8.5-10.1)
[2020-01-16 08:57] LABS: BLOOD UREA NITROGEN 13.3 mg/dL (7-18)
[2020-01-16 09:00] LABS: CREATININE 0.6 mg/dL (0.55-1.3)
[2020-01-16] MEDS: CEFTRIAXONE 1 GM in DEXTROSE 5%-WATER - 50 ML IVPB SCH (09:14)
[2020-01-16] MEDS: PATIENT'S OWN MEDICATION (NON-FORMULARY) (Linaclotide [Linzess] 145 MCG) PO SCH (09:15)
[2020-01-16] MEDS: TAMSULOSIN HCL 0.4 MG CAP PO SCH (09:15)
[2020-01-16] MEDS: DICYCLOMINE HCL 10 MG CAPSULE PO SCH (09:16)
[2020-01-16] MEDS ORDERED: POLYETHYLENE GLYCOL 3350 119 GM BTL PO ONE (13:41)
[2020-01-16 15:08] VITALS: BP 114/62; PULSE 95; TEMP 99
== END 2020-01-16 15:57 | disposition home or self-care (01) | DRG 463 ==
LOC: JER 23:36 → JERBED 01-14 05:09 → J6WEST-2 01-14 09:45 → J5S 01-15 16:14
PROVIDERS: ADMIT Internal Medicine; ATTEND Internal Medicine
PROC: 0T778DZ Dilation of Left Ureter with Intraluminal Device, Via Natural or Artificial Opening Endoscopic (ICD-10-PCS; principal; 2020-01-14 16:00)
PROC: 0TF78ZZ Fragmentation in Left Ureter, Via Natural or Artificial Opening Endoscopic (ICD-10-PCS; 2020-01-14 16:00)
PROC: BT1BYZZ Fluoroscopy of Bladder and Urethra using Other Contrast (ICD-10-PCS; 2020-01-14 16:00)
DX: N13.6 Pyonephrosis (principal); J45.909 Unspecified asthma, uncomplicated; E66.9 Obesity, unspecified; R73.9 Hyperglycemia, unspecified; Z68.30 Body mass index [BMI] 30.0-30.9, adult; E86.9 Volume depletion, unspecified; K59.00 Constipation, unspecified
CPT/HCPCS: 36415; 74018-TC-FY; 74176-TC; 80048; 80053; 81003; 83036; 83735; 84100; 84550; 84703; 85025; 85027; 85610; 85730; 86850; 86900; 86901; 87086; 93005; 93010; 94760; 99285-25; C9803; J1644; U0003

== ENCOUNTER 2020-02-04 06:55 | Emergency (ER) | payer OTHER ==
[2020-02-04 07:00] VITALS: TEMP 98.7; BMI 31.1
[2020-02-04 09:16] LABS: BASO % 0.3 % (0-2.0); EOS % 2.3 % (0-4.5); HEMATOCRIT 37.6 % (32.4-45.2); HEMOGLOBIN 11.9 GM/dL (10.7-15.3); LYMPH % 32.6 % (8-40); MCH 26.5 pg (25.7-33.7); MCHC 31.8 g/dl (32.0-36.0); MEAN CELL VOLUME 83.3 fl (80-96); MEAN PLT VOLUME 7.8 fl (7.5-11.1); MONO % 8.5 % (3.8-10.2); NEUT % 56.3 % (42.8-82.8); PLATELET COUNT 285 K/MM3 (134-434); RBC 4.51 M/mm3 (3.60-5.2); RDW 14.5 % (11.6-15.6); WHITE BLOOD COUNT 4.7 K/mm3 (4.0-10.0)
[2020-02-04 09:24] LABS: POTASSIUM 3.8 mmol/L (3.5-5.1)
[2020-02-04 09:27] LABS: ALBUMIN 3.2 g/dl (3.4-5.0)
[2020-02-04 09:30] LABS: CREATININE 0.5 mg/dL (0.55-1.3)
[2020-02-04 09:31] LABS: BILIRUBIN,TOTAL 0.3 mg/dL (0.2-1)
[2020-02-04 09:32] LABS: TOT PROT 6.1 g/dl (6.4-8.2)
[2020-02-04 09:33] LABS: EPI CELLS 23 /uL (0-25.1); HYALINE CASTS 2 /uL (0-3.1); PH,URINE 6.5 (5.0-8.0); URINE APPEARANCE CLOUDY; URINE BACTERIA 5 /uL (0-1359); URINE BILIRUBIN NEGATIVE (NEGATIVE); URINE COLOR YELLOW; URINE GLUCOSE (UA) NEGATIVE (NEGATIVE); URINE KETONE NEGATIVE (NEGATIVE); URINE LEUK ESTERASE TRACE (NEGATIVE); URINE NITRITE NEGATIVE (NEGATIVE); URINE PROTEIN 1+ (NEGATIVE); URINE RBC 2524 /uL (0-23.9); URINE UROBILINOGEN 0.2 mg/dL (0.2-1.0); URINE WBC 36 /uL (0-25.8)
[2020-02-04 11:19] VITALS: BP 126/80; PULSE 72
== END 2020-02-04 11:19 | disposition home or self-care (01) ==
LOC: JER 06:55
DX: N20.0 Calculus of kidney (principal); J45.909 Unspecified asthma, uncomplicated; U07.1 COVID-19
CPT/HCPCS: 36415; 71045-TC-FY; 80053; 81003; 85025; 87086; 93005; 93010; 99284-25

== ENCOUNTER 2020-02-25 04:29 | Day surgery (SDC) | payer OTHER ==
[2020-02-21 11:58] VITALS: BMI 29.2
[2020-02-25] MEDS ORDERED: MIDAZOLAM HCL 2 MG/2 ML SINGLE DOSE VIAL ONE (14:28)
[2020-02-25] MEDS ORDERED: PROPOFOL 20 ML ONE (14:28)
[2020-02-25] MEDS ORDERED: ceFAZolin SODIUM 1 GM VIAL IVPB ONE (14:35)
[2020-02-25] MEDS ORDERED: ONDANSETRON 4 MG/2 ML VIAL IVPUSH PRN (15:11)
[2020-02-25] MEDS ORDERED: oxyCODONE HCL 5 MG TABLET PO PRN (15:11)
[2020-02-25] MEDS ORDERED: LACTATED RINGERS SOLUTION 1,000 ML IV SCH (15:15)
[2020-02-25] MEDS ORDERED: KETOROLAC TROMETHAMINE 30 MG/1 ML VIAL ONE (15:18)
[2020-02-25] MEDS ORDERED: oxyCODONE HCL 5 MG TABLET ONE (16:49)
[2020-02-25] MEDS ORDERED: ONDANSETRON 4 MG/2 ML VIAL ONE (17:18)
[2020-02-25] MEDS ORDERED: ONDANSETRON 4 MG/2 ML VIAL IVPUSH ONE (17:20)
[2020-02-25 18:56] VITALS: BP 130/80; PULSE 82; TEMP 97.6
[2020-03-12 09:40] LABS: SIZE 2 x 5; WEIGHT 48
[2020-03-12 09:41] LABS: CA OXALATE MONOHYDR. 100%
== END 2020-02-25 18:35 | disposition home or self-care (01) ==
LOC: JASU-SURG 04:29
PROVIDERS: ATTEND Urology
PROC: 0TC78ZZ Extirpation of Matter from Left Ureter, Via Natural or Artificial Opening Endoscopic (ICD-10-PCS; principal; 2020-02-25 12:00)
PROC: BT0BZZZ Plain Radiography of Bladder and Urethra (ICD-10-PCS; 2020-02-25 12:00)
DX: N13.30 Unspecified hydronephrosis (principal); Z96.0 Presence of urogenital implants
CPT/HCPCS: 36415; 76000-TC-FY; 82360; 84703; 87086; 88108; 88300-TC; 94760

== ENCOUNTER 2020-08-21 15:14 | Emergency (ER) | payer OTHER ==
[2020-08-21 15:40] VITALS: BP 119/68; PULSE 88; TEMP 98; BMI 31.1
== END 2020-08-21 19:44 | disposition home or self-care (01) ==
LOC: JER 15:14
DX: M79.661 Pain in right lower leg (principal)
CPT/HCPCS: 93971-TC; 99284-25

== ENCOUNTER 2021-05-03 20:02 | Emergency (ER) | payer OTHER ==
[2021-05-03 20:10] VITALS: TEMP 97.4; BMI 32.9
[2021-05-03] MEDS ORDERED: METOCLOPRAMIDE HCL INJECTION 10 MG/2 ML VIAL IVPB ONE (22:17)
[2021-05-03] MEDS ORDERED: SODIUM CHLORIDE 1,000 ML IV STA (22:17)
[2021-05-03] MEDS ORDERED: METOCLOPRAMIDE HCL INJECTION 10 MG/2 ML VIAL IVPUSH ONE (22:17)
[2021-05-03] MEDS ORDERED: METOCLOPRAMIDE HCL INJECTION 10 MG/2 ML VIAL ONE (22:53)
[2021-05-03 23:37] LABS: BASO % 0.3 % (0-2.0); EOS % 0.8 % (0-4.5); HEMATOCRIT 40.8 % (32.4-45.2); HEMOGLOBIN 13.3 GM/dL (10.7-15.3); LYMPH % 32.6 % (8-40); MCH 26.8 pg (25.7-33.7); MCHC 32.6 g/dl (32.0-36.0); MEAN CELL VOLUME 82.1 fl (80-96); MEAN PLT VOLUME 7.8 fl (7.5-11.1); MONO % 7.2 % (3.8-10.2); NEUT % 59.1 % (42.8-82.8); PLATELET COUNT 297 10^3/uL (134-434); RBC 4.97 M/mm3 (3.60-5.2); RDW 14.4 % (11.6-15.6); WHITE BLOOD COUNT 5.6 K/mm3 (4.0-10.0)
[2021-05-03 23:44] LABS: INR 0.97 (0.83-1.09); PROTHROMBIN TIME (PATIENT) 11.1 SEC (9.7-13.0)
[2021-05-03 23:47] LABS: ACTIVATED PTT 32.8 SECONDS (25.2-36.5)
[2021-05-03 23:58] LABS: ALBUMIN 3.8 g/dl (3.4-5.0); BLOOD UREA NITROGEN 14.9 mg/dL (7-18); CALCIUM 8.5 mg/dL (8.5-10.1); MAGNESIUM 2.2 mg/dL (1.8-2.4)
[2021-05-04 00:01] LABS: CREATININE 0.6 mg/dL (0.55-1.3)
[2021-05-04 00:03] LABS: BILIRUBIN,TOTAL 0.2 mg/dL (0.2-1)
[2021-05-04 01:11] VITALS: BP 130/88; PULSE 74
== END 2021-05-04 01:11 | disposition home or self-care (01) ==
LOC: JER 20:02
PROC: 3E033GC Introduction of Other Therapeutic Substance into Peripheral Vein, Percutaneous Approach (ICD-10-PCS; principal; 2021-05-03)
PROC: 3E033GC Introduction of Other Therapeutic Substance into Peripheral Vein, Percutaneous Approach (ICD-10-PCS; 2021-05-03)
PROC: 3E0337Z Introduction of Electrolytic and Water Balance Substance into Peripheral Vein, Percutaneous Approach (ICD-10-PCS; 2021-05-03)
DX: G44.201 Tension-type headache, unspecified, intractable (principal)
CPT/HCPCS: 36415; 71046-TC-FY; 80053; 82550; 83735; 84484; 85025; 85610; 85730; 93005; 93010; 96361; 96374; 96375; 99285-25

== ENCOUNTER 2021-08-03 15:55 | Emergency (ER) | payer OTHER ==
[2021-08-03 16:17] VITALS: BP 148/89; PULSE 89; TEMP 98.3; BMI 32.9
[2021-08-03] MEDS ORDERED: DEXAMETHASONE LIQUID 0.5 MG/5 ML PO ONE (17:47)
[2021-08-03] MEDS ORDERED: DEXAMETHASONE SOD PHOSPHATE 10 MG/1 ML VIAL ONE (18:28)
[2021-08-03] MEDS ORDERED: ALBUTEROL SO4 2.5/IPRATROPIUM 0.5 INH SOL 3 ML VIAL.NEB. NEB ONE ×2 (18:28)
[2021-08-03] MEDS: ALBUTEROL SO4 2.5/IPRATROPIUM 0.5 INH SOL 3 ML VIAL.NEB. NEB SCH (20:26)
== END 2021-08-03 21:13 | disposition home or self-care (01) ==
LOC: JER 15:55
PROC: 3E0F7GC Introduction of Other Therapeutic Substance into Respiratory Tract, Via Natural or Artificial Opening (ICD-10-PCS; principal; 2021-08-03)
DX: J45.21 Mild intermittent asthma with (acute) exacerbation (principal)
CPT/HCPCS: 0241U-QW; 71046-TC-FY; 99284-25

== ENCOUNTER 2021-08-21 14:36 | Emergency (ER) | payer OTHER ==
[2021-08-21 14:58] VITALS: BP 121/86; PULSE 93; TEMP 98.1; BMI 32.9
[2021-08-21] MEDS ORDERED: KETOROLAC TROMETHAMINE 30 MG/1 ML VIAL IM ONE (18:01)
[2021-08-21] MEDS ORDERED: METHOCARBAMOL 500 MG TABLET PO ONE (18:02)
[2021-08-21] MEDS ORDERED: LIDOCAINE 5% TOPICAL PATCH TP ONE (18:02)
[2021-08-21] MEDS ORDERED: METHOCARBAMOL 500 MG TABLET ONE (20:08)
[2021-08-21] MEDS ORDERED: LIDOCAINE 5% TOPICAL PATCH ONE (20:08)
[2021-08-21] MEDS ORDERED: KETOROLAC TROMETHAMINE 30 MG/1 ML VIAL ONE (20:08)
[2021-08-21] MEDS ORDERED: LIDOCAINE PATCH REMOVAL MC SCH (22:00)
== END 2021-08-21 20:48 | disposition home or self-care (01) ==
LOC: JER 14:36
PROC: 3E023GC Introduction of Other Therapeutic Substance into Muscle, Percutaneous Approach (ICD-10-PCS; principal; 2021-08-21)
DX: R07.89 Other chest pain (principal)
CPT/HCPCS: 71046-TC-FY; 71101-TC-RT-FY; 96372; 99284-25

== ENCOUNTER 2022-03-22 22:16 | Emergency (ER) | payer OTHER ==
[2022-03-22 22:21] VITALS: BMI 33.8
[2022-03-23] MEDS ORDERED: METOCLOPRAMIDE HCL INJECTION 10 MG/2 ML VIAL IVPB ONE (01:24)
[2022-03-23] MEDS ORDERED: LACTATED RINGERS SOLUTION 1000 ML INFUS.BAG IV ONE (01:24)
[2022-03-23] MEDS ORDERED: KETOROLAC TROMETHAMINE 15 MG/ML VIAL IVPUSH ONE (01:24)
[2022-03-23] MEDS ORDERED: FAMOTIDINE 20 MG/50 ML IVPB 20 MG/50 ML MG IVPB ONE ×2 (01:38→02:16)
[2022-03-23] MEDS ORDERED: SUCRALFATE 1 GM TABLET (FP) PO ONE (01:38)
[2022-03-23] MEDS ORDERED: MAG HYDROX/AL HYDROX/SIMETH -MYLANTA- ORAL SUSPENSION PO ONE (01:38)
[2022-03-23] MEDS ORDERED: SUCRALFATE 1 GM TABLET (FP) ONE (02:16)
[2022-03-23] MEDS ORDERED: KETOROLAC TROMETHAMINE 15 MG/ML VIAL ONE (02:16)
[2022-03-23] MEDS ORDERED: MAG HYDROX/AL HYDROX/SIMETH 30 ML UNIT-DOSE CUP ONE (02:16)
[2022-03-23] MEDS ORDERED: METOCLOPRAMIDE HCL INJECTION 10 MG/2 ML VIAL ONE (02:16)
[2022-03-23 02:37] LABS: BASO % 0.4 % (0-2.0); EOS % 1.6 % (0-4.5); HEMATOCRIT 41.1 % (32.4-45.2); LYMPH % 38.1 % (8-40); MCH 26.1 pg (25.7-33.7); MCHC 31.7 g/dl (32.0-36.0); MEAN CELL VOLUME 82.2 fl (80-96); MEAN PLT VOLUME 7.3 fl (7.5-11.1); MONO % 7.9 % (3.8-10.2); PLATELET COUNT 302 10^3/uL (134-434); RDW 14.9 % (11.6-15.6); WHITE BLOOD COUNT 6.4 K/mm3 (4.0-10.0)
[2022-03-23 02:54] LABS: CALCIUM 8.4 mg/dL (8.5-10.1)
[2022-03-23 02:55] LABS: ALBUMIN 3.6 g/dl (3.4-5.0); BLOOD UREA NITROGEN 23.4 mg/dL (7-18)
[2022-03-23 02:58] LABS: CREATININE 0.6 mg/dL (0.55-1.3)
[2022-03-23 02:59] LABS: BILIRUBIN,TOTAL 0.2 mg/dL (0.2-1); TOT PROT 6.6 g/dl (6.4-8.2)
[2022-03-23 05:20] VITALS: BP 119/75; PULSE 79; RESP 16; TEMP 97.9
== END 2022-03-23 05:24 | disposition home or self-care (01) ==
LOC: JER 22:16
PROC: 3E033GC Introduction of Other Therapeutic Substance into Peripheral Vein, Percutaneous Approach (ICD-10-PCS; principal; 2022-03-22)
DX: R07.9 Chest pain, unspecified (principal); R51.9 Headache, unspecified
CPT/HCPCS: 36415; 71046-TC-FY; 80053; 84484; 84703; 85025; 93005; 93010; 96365; 96375; 99285-25

== ENCOUNTER 2022-05-20 04:12 | Day surgery (SDC) | payer OTHER ==
[2022-05-18 13:02] VITALS: BMI 32.9
[~2022-05-20 04:12] MED LIST: BUPIVACAINE HCL/PF 0.75% 10 ML VIAL PNB ONE; LIDOCAINE 1% P/F 10 MG/ML VIAL PNB ONE
[2022-05-20] MEDS ORDERED: LIDOCAINE 1% P/F 10 MG/ML VIAL PNB ONE (14:15)
[2022-05-20] MEDS ORDERED: BUPIVACAINE HCL/PF 0.75% 10 ML VIAL PNB ONE (14:15)
[2022-05-20 14:43] VITALS: BP 129/71; PULSE 73; RESP 20; TEMP 97.6
== END 2022-05-20 15:22 | disposition home or self-care (01) ==
LOC: JASU-SURG 04:12
PROVIDERS: ATTEND Pain Medicine Pain Medicine
PROC: 3E0T33Z Introduction of Anti-inflammatory into Peripheral Nerves and Plexi, Percutaneous Approach (ICD-10-PCS; 2022-05-20)
PROC: BR16YZZ Fluoroscopy of Lumbar Facet Joint(s) using Other Contrast (ICD-10-PCS; 2022-05-20)
PROC: 3E0T3BZ Introduction of Anesthetic Agent into Peripheral Nerves and Plexi, Percutaneous Approach (ICD-10-PCS; principal; 2022-05-20 14:30)
DX: M47.816 Spondylosis without myelopathy or radiculopathy, lumbar region (principal)
CPT/HCPCS: 76000-TC-FY; 81025

== ENCOUNTER 2022-05-31 12:43 | Emergency (ER) | payer OTHER ==
[2022-05-31 12:53] VITALS: BP 158/86; PULSE 83; RESP 17; TEMP 98.1; BMI 32.9
[2022-05-31] MEDS ORDERED: ACETAMINOPHEN 1000 MG/100 ML BAG IVPB ONE (13:45)
[2022-05-31] MEDS ORDERED: LACTATED RINGERS SOLUTION 1,000 ML/1,000 ML INFUS.BAG IV STA (13:45)
[2022-05-31] MEDS ORDERED: METOCLOPRAMIDE HCL INJECTION 10 MG/2 ML VIAL IVPUSH ONE (13:45)
[2022-05-31] MEDS ORDERED: METOCLOPRAMIDE HCL INJECTION 10 MG/2 ML VIAL ONE (14:00)
[2022-05-31] MEDS ORDERED: ACETAMINOPHEN INJECTION 100 ML IVPB ONE (14:00)
[2022-05-31] MEDS ORDERED: KETOROLAC TROMETHAMINE 30 MG/1 ML VIAL IVPUSH ONE (16:09)
== END 2022-05-31 16:53 | disposition home or self-care (01) ==
LOC: JERFT 12:43 → JER 12:43
PROC: 3E033GC Introduction of Other Therapeutic Substance into Peripheral Vein, Percutaneous Approach (ICD-10-PCS; principal; 2022-05-31)
DX: R51.9 Headache, unspecified (principal)
CPT/HCPCS: 70450-TC; 84703; 96361; 96374; 96375; 99285-25

== ENCOUNTER 2022-07-08 03:45 | Day surgery (SDC) | payer OTHER ==
[2022-07-06 11:27] VITALS: BMI 32.9
[~2022-07-08 03:45] MED LIST changes: -BUPIVACAINE HCL/PF 0.75% 10 ML VIAL PNB ONE; -LIDOCAINE 1% P/F 10 MG/ML VIAL PNB ONE; +LIDOCAINE HCL 1% PRESERVATIVE FREE - 30ML VIAL IJ ONE
[2022-07-08] MEDS ORDERED: BUPIVACAINE HCL/PF 0.75% 10 ML VIAL ONE (07:13)
[2022-07-08] MEDS ORDERED: LIDOCAINE HCL/PF 1% SDV 5ML VIAL ONE (07:13)
[2022-07-08] MEDS ORDERED: ACETAMINOPHEN 500 MG TABLET (FP) PO PRN (08:33)
[2022-07-08] MEDS ORDERED: LIDOCAINE HCL 1% PRESERVATIVE FREE - 30ML VIAL IJ ONE (09:20)
[2022-07-08 09:47] VITALS: RESP 18; TEMP 97
[2022-07-08 12:01] VITALS: BP 110/60; PULSE 74
== END 2022-07-08 10:55 | disposition home or self-care (01) ==
LOC: JASU-SURG 03:45
PROVIDERS: ATTEND Pain Medicine Pain Medicine
PROC: 3E0T33Z Introduction of Anti-inflammatory into Peripheral Nerves and Plexi, Percutaneous Approach (ICD-10-PCS; 2022-07-08)
PROC: 3E0T3BZ Introduction of Anesthetic Agent into Peripheral Nerves and Plexi, Percutaneous Approach (ICD-10-PCS; principal; 2022-07-08 08:45)
DX: M47.816 Spondylosis without myelopathy or radiculopathy, lumbar region (principal)
CPT/HCPCS: 76000-TC-FY; 81025

== ENCOUNTER 2023-01-09 18:59 | Emergency (ER) | payer OTHER ==
[2023-01-09 19:40] VITALS: BP 120/63; PULSE 84; RESP 19; TEMP 98.1; BMI 32.9
[2023-01-10] MEDS ORDERED: DEXTROMETHORPHAN/PROMETHAZINE 15 MG/6.25 MG/5 ML SYRUP PO ONE (00:06)
[2023-01-10] MEDS ORDERED: methylPREDNISolone NA SUCC 125 MG/2 ML VIAL IM ONE (00:06)
== END 2023-01-10 01:09 | disposition home or self-care (01) ==
LOC: JERFT 18:59
PROC: 3E023GC Introduction of Other Therapeutic Substance into Muscle, Percutaneous Approach (ICD-10-PCS; principal; 2023-01-10)
DX: R07.89 Other chest pain (principal); R05.9 Cough, unspecified; J45.909 Unspecified asthma, uncomplicated; J32.9 Chronic sinusitis, unspecified; E65 Localized adiposity; M41.20 Other idiopathic scoliosis, site unspecified; Z20.822 Contact with and (suspected) exposure to COVID-19
CPT/HCPCS: 0241U-QW; 71046-TC-FY; 72040-TC; 96372; 99284-25

== ENCOUNTER 2023-02-16 04:21 | Day surgery (SDC) | payer OTHER ==
[2023-02-15 08:08] VITALS: BMI 32.9
[2023-02-16] MEDS ORDERED: BUPIVACAINE HCL/PF 0.25% (2.5MG/ML) 10 ML VIAL ONE (10:29)
[2023-02-16] MEDS ORDERED: LIDOCAINE HCL 1%, 10 MG/ML (20ML VIAL) ONE (10:29)
[2023-02-16] MEDS ORDERED: ONDANSETRON 4 MG/2 ML VIAL ONE (12:01)
[2023-02-16] MEDS ORDERED: ceFAZolin SODIUM 1 GM VIAL ONE (12:01)
[2023-02-16] MEDS ORDERED: KETOROLAC TROMETHAMINE 30 MG/1 ML VIAL ONE (12:01)
[2023-02-16] MEDS ORDERED: DEXAMETHASONE SOD PHOSPHATE 4 MG/1 ML VIAL ONE (12:01)
[2023-02-16] MEDS ORDERED: PROPOFOL 40 ML ONE (12:01)
[2023-02-16] MEDS ORDERED: LIDOCAINE HCL/PF 2% SDV 5ML VIAL ONE (12:01)
[2023-02-16] MEDS ORDERED: MIDAZOLAM HCL 2 MG/2 ML SINGLE DOSE VIAL ONE ×2 (12:02→13:11)
[2023-02-16] MEDS ORDERED: ceFAZolin SODIUM 1 GM VIAL IVPB ONE (12:14)
[2023-02-16] MEDS ORDERED: LIDOCAINE HCL 1%, 10 MG/ML (20ML VIAL) INF ONE ×3 (12:29)
[2023-02-16] MEDS ORDERED: BUPIVACAINE HCL/PF 0.25% (2.5MG/ML) 10 ML VIAL IJ ONE ×3 (12:29)
[2023-02-16] MEDS ORDERED: PROPOFOL 20 ML ONE ×2 (13:11→13:36)
[2023-02-16] MEDS ORDERED: oxyCODONE HCL 5 MG TABLET PO PRN (13:58)
[2023-02-16] MEDS ORDERED: ONDANSETRON 4 MG/2 ML VIAL IVPUSH PRN (13:58)
[2023-02-16] MEDS ORDERED: LACTATED RINGERS SOLUTION 1,000 ML IV SCH (14:00)
[2023-02-16 16:29] VITALS: TEMP 97.2
[2023-02-16 16:54] VITALS: BP 130/65; PULSE 84; RESP 18
== END 2023-02-16 17:05 | disposition home or self-care (01) ==
LOC: JASU-SURG 04:21
PROVIDERS: ATTEND Surgery
PROC: 0JB40ZZ Excision of Right Neck Subcutaneous Tissue and Fascia, Open Approach (ICD-10-PCS; 2023-02-16)
PROC: 0JB50ZZ Excision of Left Neck Subcutaneous Tissue and Fascia, Open Approach (ICD-10-PCS; principal; 2023-02-16 11:00)
DX: E88.2 Lipomatosis, not elsewhere classified (principal)
CPT/HCPCS: 82962; 88307-TC; 94760

== ENCOUNTER 2023-02-22 09:22 | Emergency (ER) | payer OTHER ==
[2023-02-22 09:26] VITALS: BP 145/85; PULSE 79; RESP 18; TEMP 97.7; BMI 32.9
[2023-02-22] MEDS ORDERED: LIDOCAINE 1%/EPI 1:100000 (50 ML MULTI DOSE VIAL) ONE (13:55)
== END 2023-02-22 14:53 | disposition home or self-care (01) ==
LOC: JERFT 09:22
DX: T81.31XA Disruption of external operation (surgical) wound, not elsewhere classified, initial encounter (principal)
CPT/HCPCS: 99283-25

== ENCOUNTER 2023-10-15 13:25 | Emergency (ER) | payer OTHER ==
[2023-10-15 13:30] VITALS: BP 127/84; PULSE 81; RESP 18; TEMP 99.2; BMI 32.9
== END 2023-10-15 15:05 | disposition home or self-care (01) ==
LOC: JERFT 13:25
DX: R68.84 Jaw pain (principal); K04.7 Periapical abscess without sinus
CPT/HCPCS: 99283-25

== ENCOUNTER 2024-04-20 20:48 | Emergency (ER) | payer OTHER ==
[2024-04-20 20:52] VITALS: BP 142/88; PULSE 108; RESP 20; TEMP 97.7; BMI 32.0
[2024-04-20] MEDS ORDERED: ALBUTEROL SO4 2.5/IPRATROPIUM 0.5 INH SOL 3 ML VIAL.NEB. NEB ONE ×2 (20:59)
[2024-04-20] MEDS: ALBUTEROL SO4 2.5/IPRATROPIUM 0.5 INH SOL 3 ML VIAL.NEB. NEB ONE (20:59)
[2024-04-20] MEDS ORDERED: guaiFENesin/D-METHORPHAN HB 10 ML UNIT-DOSE CUPS ONE (21:50)
[2024-04-20] MEDS: guaiFENesin/D-METHORPHAN HB 10 ML UNIT-DOSE CUPS PO ONE (21:51)
[2024-04-20] MEDS: MONTELUKAST NA 5 MG TAB.CHEW PO ONE (22:00)
== END 2024-04-20 22:26 | disposition home or self-care (01) ==
LOC: JERFT 20:48
PROC: 3E0F7GC Introduction of Other Therapeutic Substance into Respiratory Tract, Via Natural or Artificial Opening (ICD-10-PCS; principal; 2024-04-20)
DX: J10.1 Influenza due to other identified influenza virus with other respiratory manifestations (principal); R06.02 Shortness of breath
CPT/HCPCS: 71046-TC-FY; 99283-25